=== PATIENT | female | born 1970 | race Caucasian/White ===

== ENCOUNTER 2019-02-21 19:53 | Emergency (ER) | payer BC ==
[~2019-02-21] VITALS: Ht 162.6 cm; Wt 59.0 kg
[~2019-02-21 19:53] MED LIST: RIZA10TA28; SUMA1TAB
--- NOTE | 2019-02-21 20:12 | NUR ---
BIBS W/ FAMILY FROM HOME. TO ER BED 9. AAOX4. NO RESP DISTRESS NOTED. AMBULATORY. C/O MIGRAINE HEADACHE SINCE 7AM. PT IS NAUSEOUS. LIGHT AGGRAVATING HEADACHE. PROVIDED DIM ENVIRONMENT. ADDIE READ AT BEDSIDE FOR EVAL. ORDERS RECEIVED, NOTED AND CARRIED OUT.
[2019-02-21] MEDS ORDERED: ONDANSETRON HCL/PF 4 MG/2 ML VIAL ONE (20:16)
[2019-02-21] MEDS ORDERED: KETOROLAC TROMETHAMINE INJ 30 MG/ML VIAL ONE (20:16)
[2019-02-21] MEDS: IV NS 0.9% 1,000 ML BAG IV ONE (20:28)
[2019-02-21] MEDS: ONDANSETRON HCL/PF 4 MG/2 ML VIAL IV ONE (20:29)
[2019-02-21] MEDS: KETOROLAC TROMETHAMINE INJ 30 MG/ML VIAL IV ONE (20:29)
--- NOTE | 2019-02-21 20:32 | NUR ---
IV LINE OBATINED ON THE R AC 20G. MEDICATED ORDERED.
--- NOTE | 2019-02-21 21:11 | NUR ---
Patient discharged to home in stable condition. Written and verbal after care instructions given. Patient verbalizes understanding of instruction.IV removed. Catheter intact and site benign. Pressure and 4x4 applied to site. No bleeding noted. Pt ambulatory with a steady gait
[2019-02-21 21:12] VITALS: BP 108/75
== END 2019-02-21 21:12 | disposition home or self-care (01) ==
LOC: ER 19:57
DX: G43.909 Migraine, unspecified, not intractable, without status migrainosus (principal); R11.2 Nausea with vomiting, unspecified; E03.9 Hypothyroidism, unspecified; Z98.890 Other specified postprocedural states; Z41.1 Encounter for cosmetic surgery; Z79.899 Other long term (current) drug therapy; Z88.8 Allergy status to other drugs, medicaments and biological substances
CPT/HCPCS: 96361; 96374; 96375; 99283; J1885; J2405; J7030